=== PATIENT | male | born 1990 | race Caucasian/White ===

== ENCOUNTER 2020-04-03 15:05 | Emergency (ER) | payer BC, OTHER ==
[~2020-04-03] VITALS: Ht 182.9 cm; Wt 136.1 kg
[~2020-04-03 15:05] MED LIST: PREDNISONE 10 M10 MG PO
[2020-04-03] MEDS ORDERED: PRINIVIL10 MG PO (17:20)
[2020-04-03] MEDS ORDERED: ALLOPURINOL 10100 M3 PO (17:21)
[2020-04-03 17:34] VITALS: BP 145/95
--- NOTE | 2020-04-04 07:41 | EKG ---
[facility] [place] [address] ELECTROCARDIOGRAM REPORT Name: NICANOR CHAU Room #: DEP [facility]#: [id number] Admission: 04/03/20 Attend Phys: Discharge: 04/03/20 Date of : 86 Report #: [id number] THIS REPORT FOR: cc: Kobe Hsu MD, Elliott L. MD Santiago, Patrick MD [facility] ~ THIS REPORT FOR: //name// [facility] ED Test Date: 2020-04-03 Test Time: 15:46:02 Pat Name: NICANOR CHAU Department: Room: Gender: [employer]: [facility] : 1990 Requested By: Maribell Heath Order Number: [id number] MD: Dilan Collins Measurements Intervals [place] Rate: 102 P: 66 TX: 166 QRS: 52 QRSD: 93 T: -5 QT: 332 QTc: 433 Interpretive Statements Sinus tachycardia Left atrial enlargement Baseline wander in lead(s) V3 No previous ECG available for comparison Electronically Signed On 04-04-2020 7:41:12 CDT by Dilan Collins [email or web address] <ELECTRONICALLY SIGNED> By: Dilan Collins MD, FACC 04/04/20 0741 [id number] Dilan Collins MD, [facility] /EPI
== END 2020-04-03 17:35 | disposition home or self-care (01) ==
LOC: ER 15:05
DX: R09.89 Other specified symptoms and signs involving the circulatory and respiratory systems (principal); Z20.828 Contact with and (suspected) exposure to other viral communicable diseases; R09.81 Nasal congestion; R05 Cough; J45.909 Unspecified asthma, uncomplicated; Z79.899 Other long term (current) drug therapy; Z88.1 Allergy status to other antibiotic agents; Z88.8 Allergy status to other drugs, medicaments and biological substances